=== PATIENT | male | born 1955 | race Asian ===

== ENCOUNTER 2016-11-27 05:11 | Inpatient (IN) | payer MEDICAID ==
[2016-11-27] VITALS (18 sets, daily range): BP systolic 115–157; BP diastolic 52–86
[~2016-11-27] VITALS: Ht 165.1 cm; Wt 70.8 kg
--- NOTE | 2016-11-27 05:14 | Emergency Room Report ---
History of Present Illness General Source: Patient, Medical Record, EMS (AGUSTINA RIVERA M.D.) Present Illness HPI 61YOM BIBEMS from home with 3x syncopal episodes. Fell last night 2x. Fell this morning 4am. First time hit head. 2 hours later, fell to side at dinner. Daughter said he "looked like he was having seizure." Had episodes of vomiting. ?LOC On ASA Also has DM, on metformin Denies chest pain, SOB, palpitations EMS states bradycardic and hypotensive on scene Improved BP after 500cc fluid bolus en route - normotensive in ER. Not bradycardic here. (AGUSTINA RIVERA M.D.) Allergies: Coded Allergies: No Known Allergies (Unverified , 11/27/16) Patient History Limited by: language barrier Past Medical History: none Past Surgical History: none Pertinent Family History: none Social History: Denies: smoking, alcohol use, drug use Immunizations: UTD Reviewed Nursing Documentation: PMH: Agreed, PSxH: Agreed (AGUSTINA RIVERA M.D.) Review of Systems All Other Systems: negative except mentioned in HPI (AGUSTINA RIVERA M.D.) Physical Exam Sp02 EP Interpretation: reviewed, normal General Appearance: normal inspection, well appearing, no apparent distress, alert, GCS 15, non-toxic Head: normocephalic, other - 2cm stellate lac to back of head, very superficial Eyes: bilateral eye PERRL, bilateral eye EOMI ENT: normal ENT inspection, hearing grossly normal, normal voice Neck: normal inspection, full range of motion, supple, no meningismus, no bony tend, other - No midline c-spine ttp Respiratory: normal inspection, lungs clear, normal breath sounds, no rhonchi, no respiratory distress, no retraction, no wheezing, speaking full sentences Cardiovascular #1: regular rate, rhythm, no edema Gastrointestinal: normal inspection, normal bowel sounds, non tender, soft, no guarding, no hernia Genitourinary: no CVA tenderness Musculoskeletal: normal inspection, back normal, normal range of motion, Jose' s Sign negative Neurologic: normal inspection, alert, oriented x3, responsive, coal bagger III-XII nml as tested, motor strength/tone normal, speech normal Psychiatric: normal inspection, judgement/insight normal, mood/affect normal Skin: normal inspection, normal color, no rash (AGUSTINA RIVERA M.D.) Procedures Critical Care Time Critical Care Time CC time 30 minutes Multiple falls in context of likely new onset 2nd degree Mobitz type 2 heart block Time include d/w family Interpretation of labs, images D/w hospitalist Possibly includes transfer for higher level of care and so CC time includes d/w hospitalist/outside specialists CC time also could include dosing of anti-epileptic medication, mannitol, anti- HTN medication, setting pacer capture, dosing atropine for bradycardua Does not include procedure time (AGUSTINA RIVERA M.D.) Medical Decision Making Medicare Attestation I Agustina Rivera MD hereby attest that the medical record entry for date of service, 11/27/16 accurately reflects signatures/notations that I made in my capacity as MD when I treated/diagnosed the above listed Medicare beneficiary. I attest that this information is true, accurate and complete to the best of my knowledge. I understand that any falsification, omission, or concealment of material fact may subject me to administrative, civil, or criminal liability. This patient warrants hospital admission for extreme of age and has a condition that cannot be treated as outpatient. (AGUSTINA RIVERA M.D.) Diagnostic Impression: Primary Impression: Syncopal episodes Qualified Codes: R55 - Syncope and collapse Additional Impressions: Head trauma Qualified Codes: S09.90XA - Unspecified injury of head, initial encounter 2nd degree atrioventricular block Hyperglycemia ER Course Multiple syncopal episodes at home, one with head trauma ?yesterday. Feeling week for months On ASA Minor lac - not requiring suture repair, already >[address]: No acute traumatic ICH Labs: H&H stable. No leuks. K normal. Glucose 359 ECnd degree AV block, RBBB, LAFB Pacer pads placed on patient IVF, insulin given for hyperglycemia Endorsed to Dr Soares at 610am for ICU admission Trop was still pending at this time so that was endorsed to Dr Heard as well as request to consult Dr Arguello from Cardiology (AGUSTINA RIVERA M.D.) ER Course Received signout from 61-year-old male, 3 episodes of syncope, head trauma CT head is negative Patient was hypotensive and bradycardic in the field Second-degree heart block Mobitz type II Currently patient is awake alert, not in acute distress, at bedside is conversing with family members. Heart rate is currently stable ranging from 65- 75. Blood pressure is slightly hypertensive 163/82 Glucose elevated Patient received fluid bolus as well as insulin in the ER Patient was endorsed to Dr. Soares and will be admitted to the ICU Dr. Silver was consulted for cardiology (Yisel Heard M.D.) EKG Diagnostic Results Rate: normal Rhythm: other - 2nd degree AV block ST Segments: no acute changes ASA given to the pt in ED: No (AGUSTINA RIVERA M.D.) Rhythm Strip Diag. Results EP Interpretation: yes Rate: 72 Rhythm: NSR, no PVC's, no ectopy (AGUSTINA RIVERA M.D.) Chest X-Ray Diagnostic Results Chest X-Ray Diagnostic Results : Chest X-Ray Ordered: Yes # of Views/Limited/Complete: 1 View Indication: Other - syncope EP Interpretation: Yes Interpretation: no consolidation, no effusion, no pneumothorax, no acute cardiopulmonary disease Impression: No acute disease Electronically Signed by: Dr Agustina Rivera MD (AGUSTINA RIVERA M.D.) Status: improved (AGUSTINA RIVERA M.D.) Disposition: ADMITTED INPATIENT Condition: Critical AGUSTINA RIVERA M.D. Nov 27, 2016 05:14 Yisel Heard M.D. Nov 27, 2016 06:39
[2016-11-27] MEDS ORDERED: METFORMIN HCL500 M1 ORAL (05:16)
[2016-11-27] MEDS ORDERED: INSULIN (05:16)
[2016-11-27] MEDS ORDERED: ASPIR 8181 MG ORAL (05:16)
[2016-11-27 05:45] LABS: BASOPHILS % (AUTO) 0.7 % (0.0-2.0); EOSINOPHILS % (AUTO) 0.4 % (0.0-3.0); LYMPHOCYTES % (AUTO) 17.8 % (20.0-45.0); MEAN CORPUSCULAR HEMOGLOBIN 31.6 PG (27.0-31.0); MEAN CORPUSCULAR HGB CONC 32.8 G/DL (32.0-36.0); MEAN CORPUSCULAR VOLUME 96 FL (80-99); MEAN PLATELET VOLUME 8.4 FL (6.5-10.1); MONOCYTES % (AUTO) 4.7 % (1.0-10.0); NEUTROPHILS % (AUTO) 76.4 % (45.0-75.0); PLATELET COUNT 166 K/UL (150-450); RED BLOOD COUNT 4.73 M/UL (4.70-6.10); RED CELL DISTRIBUTION WIDTH 12.4 % (11.6-14.8); WHITE BLOOD COUNT 8.3 K/UL (4.8-10.8)
[2016-11-27] MEDS ORDERED: niCARdipine HCl 200 ML IV SCH (05:45)
[2016-11-27] MEDS ORDERED: Tetanus/Diptheria/Pertussis Vaccine 0.5ml Syr IM ONE (05:45)
[2016-11-27 05:58] LABS: ALANINE AMINOTRANSFERASE 94 U/L (3-41); ALBUMIN/GLOBULIN RATIO 1.6 (1.0-2.7); ANION GAP 18 (5-15); ASPARTATE AMINO TRANSFERASE 100 U/L (5-40); CALCIUM 8.8 mg/dL (8.6-10.2); CARBON DIOXIDE 20 mEQ/L (20-30); CHLORIDE 97 mEQ/L (98-107); CREATININE 1.1 mg/dL (0.7-1.2); GLOMERULAR FILTRATION RATE > 60 mL/min (>60); HEMOLYSIS 21; POTASSIUM 4.7 mEQ/L (3.4-4.9); SODIUM 135 mEQ/L (135-145); TOTAL PROTEIN 6.6 g/dL (6.6-8.7)
[2016-11-27 06:33] LABS: TROPONIN I < 0.30 ng/mL (<=0.30)
[2016-11-27 06:43] LABS: CKMB < 1.5 ng/mL (< 6.7)
[2016-11-27 06:53] LABS: BILIRUBIN,DIRECT 0.3 mg/dL (0.1-0.3)
[2016-11-27] MEDS ORDERED: Zolpidem 5mg tab ORAL PRN (08:30)
[2016-11-27] MEDS ORDERED: Milk of Magnesia 30ml Ud ORAL PRN (08:30)
[2016-11-27] MEDS: Aspirin EC 81mg tab ORAL SCH (09:30)
[2016-11-27] MEDS: Heparin 5000 units/ml inj SUBQ SCH ×2 (09:31→20:45)
--- NOTE | 2016-11-27 10:08 | History & Physical ---
History and Physical History & Physicial HP dictated #[id number] LARON STEELE Nov 27, 2016 10:08
[2016-11-27 10:20] LABS: TROPONIN I < 0.30 ng/mL (<=0.30)
--- NOTE | 2016-11-27 10:37 | Diagnostic Imaging Report ---
Indication: Head trauma. Headache. Technique: Contiguous 5 mm thick transaxial imaging of the head obtained in a Siemens Sensation [address] scanner. Soft tissue and bone windows generated. Total Dose length Product (DLP): [address] Dose Index Volume (CTDIvol): 70.38, 0.15 mGy Comparison: none Findings: There is mild prominence of the ventricles, basal cisterns, and cerebral sulci consistent with atrophy. Mild, nonspecific, white matter hypoattenuation is noted throughout the brain consistent with chronic small vessel disease. There is no midline shift, edema, acute hemorrhage, mass effect, or abnormal extra-axial fluid collections. Bones and extra osseous soft tissues are unremarkable. Impression: No acute intracranial bleed, mass effect or edema. Mild atrophy of the brain. Nonspecific white matter hypoattenuation probably due to chronic small vessel disease. The CT scanner at [facility] is accredited by the [employer] and the scans are performed using dose optimization techniques as appropriate to a performed exam including Automatic Exposure control.
[2016-11-27] MEDS: metFORMIN 500mg tab ORAL SCH ×2 (10:47→17:31)
--- NOTE | 2016-11-27 10:54 | Diagnostic Imaging Report ---
Indication: Dyspnea Comparison: None A single view chest radiograph was obtained. Findings: Cardiomediastinal appearance is within normal limits for age. Pulmonary vascularity is appropriate. The diaphragmatic contour is smooth and costophrenic angles are sharp. No pleural effusions are identified. The bones are osteopenic. Impression: No acute findings
[2016-11-27] MEDS: NovoLOG Insulin Flexpen SUBQ SCH ×3 (11:58→20:44)
--- NOTE | 2016-11-27 13:58 | Cardiology Progress Note ---
Assessment/Plan Assessment/Plan high grade avblock syncope dm abn lfts repeat lft coag keep npo need pacemaker message left for ep full not dicated keep in icu trasnsuta pacing icu Objective Last 24 Hour Vital Signs Date Time Temp Pulse Resp B/P (MAP) Pulse Ox O2 Delivery O2 Flow Rate FiO2 11/27/16 13:00 50 17 133/52 99 Nasal Cannula 2.0 11/27/16 12:00 98.2 67 17 139/86 99 Nasal Cannula 2.0 11/27/16 12:00 68 11/27/16 11:00 65 17 127/78 99 Nasal Cannula 2.0 11/27/16 10:00 68 16 133/71 99 Nasal Cannula 2.0 11/27/16 09:00 64 16 132/73 99 Nasal Cannula 2.0 11/27/16 08:06 98 Nasal Cannula 2.0 11/27/16 08:06 Nasal Cannula 2.0 11/27/16 08:00 98.1 63 15 130/67 99 Nasal Cannula 2.0 11/27/16 08:00 62 11/27/16 06:58 97.7 64 15 142/77 99 Room Air 11/27/16 06:49 64 15 142/77 99 Room Air 11/27/16 05:23 73 20 157/79 98 Room Air 11/27/16 05:05 97.7 48 16 157/79 98 Room Air Intake and Output 11/27/16 11/28/16 19:00 07:00 Intake Total 450 ml Output Total 1000 ml Balance -550 ml Intake Oral 450 ml Output Urine Total 1000 ml # Voids 2 Laboratory Tests Test 11/27/16 05:15 11/27/16 09:30 White Blood Count 8.3 K/UL (4.8-10.8) Red Blood Count 4.73 M/UL (4.70-6.10) Hemoglobin 14.9 G/DL (14.2-18.0) Hematocrit 45.4 % (42.0-52.0) Mean Corpuscular Volume 96 FL (80-99) Mean Corpuscular Hemoglobin 31.6 PG (27.0-31.0) H Mean Corpuscular Hemoglobin Concent 32.8 G/DL (32.0-36.0) Red Cell Distribution Width 12.4 % (11.6-14.8) Platelet Count 166 K/UL (150-450) Mean Platelet Volume 8.4 FL (6.5-10.1) Neutrophils (%) (Auto) 76.4 % (45.0-75.0) H Lymphocytes (%) (Auto) 17.8 % (20.0-45.0) L Monocytes (%) (Auto) 4.7 % (1.0-10.0) Eosinophils (%) (Auto) 0.4 % (0.0-3.0) Basophils (%) (Auto) 0.7 % (0.0-2.0) Sodium Level 135 mEQ/L (135-145) Potassium Level 4.7 mEQ/L (3.4-4.9) Chloride Level 97 mEQ/L (98-107) L Carbon Dioxide Level 20 mEQ/L (20-30) Anion Gap 18 (5-15) H Blood Urea Nitrogen 23 mg/dL (7-23) Creatinine 1.1 mg/dL (0.7-1.2) Estimat Glomerular Filtration Rate > 60 mL/min (>60) Glucose Level 359 mg/dL (74-106) H Calcium Level 8.8 mg/dL (8.6-10.2) Total Bilirubin 1.3 mg/dL (0.0-1.2) H Direct Bilirubin 0.3 mg/dL (0.1-0.3) Aspartate Amino Transf (AST/SGOT) 100 U/L (5-40) H Alanine Aminotransferase (ALT/SGPT) 94 U/L (3-41) H Alkaline Phosphatase 64 U/L (40-129) Total Creatine Kinase 66 U/L (38-174) Creatine Kinase MB < 1.5 ng/mL (< 6.7) Creatine Kinase MB Relative Index 2.2 Troponin I < 0.30 ng/mL (<=0.30) < 0.30 ng/mL (<=0.30) Total Protein 6.6 g/dL (6.6-8.7) Albumin 4.1 g/dL (3.5-5.2) Globulin 2.5 g/dL Albumin/Globulin Ratio 1.6 (1.0-2.7) SOBIA BURRELL Nov 27, 2016 13:58
[2016-11-27 15:13] LABS: PROTHROMBIN TIME 10.3 SEC (9.30-11.50)
[2016-11-27 15:22] LABS: TROPONIN I < 0.30 ng/mL (<=0.30)
[2016-11-27 15:29] LABS: CALCIUM 8.8 mg/dL (8.6-10.2); CREATININE 1.3 mg/dL (0.7-1.2); GLOMERULAR FILTRATION RATE 55.8 mL/min (>60); POTASSIUM 4.2 mEQ/L (3.4-4.9); TOTAL PROTEIN 6.4 g/dL (6.6-8.7)
[2016-11-27 16:20] LABS: BILIRUBIN,DIRECT 0.2 mg/dL (0.1-0.3)
--- NOTE | 2016-11-27 17:45 | History and Physical Report ---
DATE OF ADMISSION: 11/27/2016 CHIEF COMPLAINT: Episode of syncope and lightheadedness. History of Present Illness: This is a 61-year-old [place] male, who went outside of his house to see the cutting trees and he felt very lightheaded and he fell. He did not seek medical attention right away, but then later on he had another episode of lightheadedness. Apparently, he went to the [facility], which was closed. He had another episode in early this morning when he passed out and had also vomiting. The patient denies any previous history of heart problems. He was found to be bradycardic and hypotensive on the scene, was giving some IV fluid 500 mL with improvement in his blood pressure. Past Medical History: History of [id number] diabetes mellitus. MEDICATIONS: The patient was taking aspirin and metformin. ALLERGIES: No known drug allergies. Social History: No history of smoking or alcohol abuse. The patient lives with family. REVIEW OF SYSTEMS: As above. PHYSICAL EXAMINATION: GENERAL: The patient is a 61-year-old male, in no acute distress. Vital Signs: Blood pressure is 130/67, pulse 62, temperature 98.1 degrees, and respiratory rate 15. HEENT: [place] conjunctivae. Anicteric sclerae. NECK: Supple. LUNGS: Clear to auscultation. HEART: S1 and S2 without murmurs or rubs. ABDOMEN: Soft and nontender. EXTREMITIES: No cyanosis or edema. Assessment: This is a 61-year-old [place] male, who was admitted with what appears to be symptomatic bradycardia and has sick sinus syndrome. Myocardial infarction needs to be ruled out. His risk factors are diabetes. Plan: The patient will be in the intensive care unit on monitored bed. Cardiology consultation will be obtained. The patient will be ruled out for myocardial infarction by troponins and echocardiogram will be ordered. Ari Soares M.D. DR: ANGIE JOB#: [id number] CC:
[2016-11-28] VITALS (27 sets, daily range): BP systolic 118–147; BP diastolic 65–86
[2016-11-28] MEDS ORDERED: ceFAZolin 2gm/50ml Premix 50 ML IVPB PRN (04:00)
[2016-11-28 05:11] LABS: TROPONIN I < 0.30 ng/mL (<=0.30)
[2016-11-28] MEDS: NovoLOG Insulin Flexpen SUBQ SCH ×4 (05:55→20:52)
[2016-11-28] MEDS ORDERED: Bacitracin 50000 Units Vial ONE (06:44)
[2016-11-28] MEDS ORDERED: Bupivacaine 0.25% Inj 30ml INJ ONE (06:44)
[2016-11-28] MEDS ORDERED: Isovue-M 300 15ml INJ ONE (06:44)
[2016-11-28] MEDS ORDERED: Lidocaine 1% Plain 30 ml INJ ONE (06:44)
[2016-11-28] MEDS ORDERED: Sterile Water Irrig 1000ml IRRIG ONE (07:00)
[2016-11-28] MEDS ORDERED: Propofol 200mg/20ml IV ONE (07:00)
[2016-11-28] MEDS ORDERED: Midazolam 2mg/2ml Inj ONE (07:00)
[2016-11-28] MEDS ORDERED: fentaNYL 100 mcg/2 mL IV ONE (07:00)
[2016-11-28] MEDS ORDERED: NS Irrig 1000ml ONE (07:00)
--- NOTE | 2016-11-28 07:21 | Pre-Procedure Note/Attestation ---
Pre-Procedure Note/Attestation Complete Prior to Procedure Planned Procedure: not applicable Procedure Narrative: permanent pacemaker Indications for Procedure Pre-Operative Diagnosis: intermittent complete AV block Attestation I attest that I discussed the nature of the procedure; its benefits; risks and complications; and alternatives (and the risks and benefits of such alternatives ), prior to the procedure, with the patient (or the patient's legal call center support representative) - d/w pt via farmworker cranberry I attest that, if there was a reasonable possibility of needing a blood transfusion, the patient (or the patient's legal call center support representative) was given the [facility] standardized written summary, pursuant to the [place] Blood Safety Act ([place] Health and Safety Code # 1645, as amended). I attest that I re-evaluated the patient just prior to the surgery and that there has been no change in the patient's H&P, except as documented below: n/a KHADAR LARA Nov 28, 2016 07:21
[2016-11-28] MEDS ORDERED: LR 1000ml 1,000 ML IVLG SCH (07:45)
[2016-11-28] MEDS ORDERED: DiphenhydrAMINE 50mg/ml Inj IVP PRN (07:45)
[2016-11-28] MEDS ORDERED: Ketorolac 30mg Inj IV PRN (07:45)
[2016-11-28] MEDS ORDERED: Hydromorphone 0.5mg/0.5ml inj IVP PRN (07:45)
--- NOTE | 2016-11-28 07:45 | Anethesia Preoperative Eval ---
Anesthesia Pre-op PMH/ROS General Date of Evaluation: Nov 28, 2016 Time of Evaluation: 06:50 Anesthesiologist: Margareth ASA Score: ASA 3 Mallampati Score Class I : Soft palate, uvula, fauces, pillars visible Class II: Soft palate, uvula, fauces visible Class III: Soft palate, base of uvula visible Class IV: Only hard plate visible Mallampati Classification: Class II Surgeon: Bailee Diagnosis: Complete heart block Surgical Procedure: Permanent pacemaker placement Anesthesia History: none Family History: no anesthesia problems Allergies: Coded Allergies: No Known Allergies (Unverified , 11/27/16) Medications: see eMAR Past Medical History Cardiovascular: Reports: HTN, Denies: CAD, FL, valve dz, arrhythmia, other Pulmonary: Denies: asthma, COPD, DANI, other Gastrointestinal/Genitourinary: Reports: GERD, Denies: CRI, ESRD, other Neurologic/Psychiatric: Denies: dementia, CVA, depression/anxiety, TIA, other Endocrine: Reports: DM - poorly controled, Denies: hypothyroidism, steroids, other HEENT: Denies: cataract (L), cataract (R), glaucoma, BISHOP PAIUTE (L), BISHOP PAIUTE (R), other Hematology/Immune: Denies: anemia, DVT, bleeding disorder, other Musculoskeletal/Integumentary: Denies: OA, RA, DJD, DDD, edema, other PMH Narrative: as above admitted for recurrent syncopal episodes PSxH Narrative: none Anesthesia Pre-op Phys. Exam Physician Exam Last Vital Signs Date Time Temp Pulse Resp B/P (MAP) Pulse Ox O2 Delivery O2 Flow Rate FiO2 11/28/16 06:00 69 12 147/86 99 Nasal Cannula 2.0 11/28/16 04:00 98.2 11/27/16 19:30 28 Constitutional: NAD Neurologic: CN 2-12 intact Cardiovascular: RRR, no M/R/G Respiratory: CTA Gastrointestinal: S/NT/ND Airway Exam Mallampati Score: Class II MO: limited Neck: short ROM: limited Dentures: no upper, no lower Anesthesia Pre-op A/P Labs Coagulation Test 11/27/16 14:30 Prothrombin Time 10.3 SEC (9.30-11.50) Prothromb Time International Ratio 1.0 (0.9-1.1) Activated Partial Thromboplast Time 28 SEC (23-33) Chemistry Test 11/27/16 09:30 11/27/16 14:30 11/28/16 04:05 Troponin I < 0.30 ng/mL (<=0.30) < 0.30 ng/mL (<=0.30) < 0.30 ng/mL (<=0.30) Sodium Level 140 mEQ/L (135-145) Potassium Level 4.2 mEQ/L (3.4-4.9) Chloride Level 100 mEQ/L (98-107) Carbon Dioxide Level 24 mEQ/L (20-30) Anion Gap 16 (5-15) H Blood Urea Nitrogen 15 mg/dL (7-23) Creatinine 1.3 mg/dL (0.7-1.2) H Estimat Glomerular Filtration Rate 55.8 mL/min (>60) Glucose Level 245 mg/dL (74-106) #H Calcium Level 8.8 mg/dL (8.6-10.2) Total Bilirubin 1.1 mg/dL (0.0-1.2) Direct Bilirubin 0.2 mg/dL (0.1-0.3) Aspartate Amino Transf (AST/SGOT) 60 U/L (5-40) H Alanine Aminotransferase (ALT/SGPT) 82 U/L (3-41) H Alkaline Phosphatase 65 U/L (40-129) Total Protein 6.4 g/dL (6.6-8.7) L Albumin 4.3 g/dL (3.5-5.2) Globulin 2.1 g/dL Albumin/Globulin Ratio 2.0 (1.0-2.7) Risk Assessment & Plan Assessment: ASA 3 Plan: MAC Status Change Before Surgery: No Pre-Antibiotics Drug: Ancef 1gr Given Within 1 Hr of Incision: Yes Time Given: 07:26 LISSY LINDQUIST M.D. Nov 28, 2016 07:45
--- NOTE | 2016-11-28 08:35 | Operative Note - PDOC ---
Operative Note Operative Note Date of Operation/Procedure: Nov 28, 2016 Pre-op Diagnosis: intermittent complete AV block Post-op Diagnosis: same as pre-op Operative Findings: consistent w/pre-op dx studies Anesthesia: local, MAC, moderate sedation Specimen: none Complications: none Condition: stable Estimated Blood Loss: minimal Drains: none Implant(s) used?: Yes - dual chamber pacemaker Indications for Procedure intermittennt chb Description of Procedure see dictation. Leads placed via L cephalic v approach KHADAR LARA Nov 28, 2016 08:35
[2016-11-28] MEDS ORDERED: Tylenol #3 tab (300mg/30mg) ORAL PRN (08:45)
--- NOTE | 2016-11-28 08:46 | Immediate Post-Op Evaluation ---
Immediate Post-Op Evalulation Immediate Post-Op Evalulation Procedure: Permanent pacemaker placement Date of Evaluation: Nov 28, 2016 Time of Evaluation: 08:45 IV Fluids: 400 Blood Products: none Estimated Blood Loss: 50 Urinary Output: none Blood Pressure Systolic: 136 Blood Pressure Diastolic: 78 Pulse Rate: 62 Respiratory Rate: 20 O2 Sat by Pulse Oximetry: 99 Temperature (Fahrenheit): 97.6 Pain Score (1-10): 2 Nausea: No Vomiting: No Complications none Patient Status: awake, patent, none Hydration Status: adequate LISSY LINDQUIST M.D. Nov 28, 2016 08:46
[2016-11-28] MEDS: Heparin 5000 units/ml inj SUBQ SCH ×2 (09:00→20:52)
--- NOTE | 2016-11-28 09:16 | Consultation ---
DATE OF CONSULTATION: 11/27/2016 CARDIOLOGY CONSULTATION CONSULTING PHYSICIAN: Nelson Silver M.D. REFERRING PHYSICIAN: Ari Soares M.D. REASON FOR REFERRAL: Bradycardia and syncope. History Of Present Illness: This is a middle-aged male, who is apparently not under the care of a physician for a long time, although his daughter apparently gets him some medication for diabetes. Paramedics were summoned because of two episodes of syncope that he had at about 6 and 8 p.m. last night and had laceration on the back of his head on one of them. No other pain. No chest pain. No shortness of breath. Apparently, he was weak and dizzy. The patient was hypotensive and bradycardic on the arrival of paramedics. Blood pressure readings by the paramedics were 91/61 and 133/104. Apparently, no oral trauma. No incontinence. A 250 saline administered. Lung sounds are clear. A 12-lead EKG was apparently done by them, which showed sinus bradycardia and the patient was transferred to the emergency room at [facility]. Electrocardiogram shows several ventricular pauses with evidence of atrial activity on the EKGs approximately. One of the EKG shows what appears to be approximately 7 seconds of no ventricular activity, but atrial ectopy was documented to be adequate suggestive of a high-grade AV block. The patient denies having had any prior episodes of syncope. He does not have any chest pain or pressure at this time. He does have shortness of breath on exertion, especially if he goes uphill. There is no PND or orthopnea. He does have dizziness on standing. Past medical history: Positive for diabetes, apparently no other medical problems noted. The patient has not seen a physician for a long time. ALLERGIES: There is no known drug allergies. Social History: He does not smoke. Does drink alcoholic beverages approximately 10 drinks per month. No drug use. Review Of Systems: Gastrointestinal: He had some nausea and vomiting at the time that was happening apparently. Genitourinary: Negative. Pulmonary: Negative. Constitutional: Negative. Neurologic: Negative. PHYSICAL EXAMINATION: General: Shows to be a middle-aged gentleman, in no apparent respiratory distress. Neck: Supple. No jugular venous distention. No abdominojugular reflux noted. LUNGS: Clear to auscultation and percussion. CARDIAC: S1 is normal. S2 is . Diagnostic Data: EKGs basically show right bundle-branch morphology conduction defect with intermittent episodes of what appears to be Mobitz 1 second-degree AV block. There may be a left anterior fascicular block suggestive of bifascicular block. There are EKGs and copies of paramedics EKG that shows episodes of a higher degree AV block and lack of ventricular activity on one counting of 7 seconds. The patient's telemetry data indicates he has what appears to be 2:1 block at the present time. Laboratory And Diagnostic Data: White count 8.3, hemoglobin 14.9, and platelet count 166. His sodium is 135, potassium 4.7, chloride 97, bicarbonate 20, BUN of 22, creatinine 1.1, and glucose of 359. Total bilirubin of 1.3. AST of 100, ALT of 94, and alkaline phosphate 64. CK of 66. Coags are pending at this time. Imaging: He had a head CT that showed no acute intracranial bleed, mass effect, or edema, mild atrophy of the brain, nonspecific white matter ischemic changes. A chest x-ray shows no acute findings. ASSESSMENT: 1. Bradycardia and atrioventricular block. 2. Syncope. 3. Reported diabetes mellitus with blood sugar of 359. 4. Laceration. 5. Abnormal liver function test. Plan: Dr. Soares, this patient was seen in cardiac consultation. The patient will require permanent pacemaker implantation. We are trying to get a hold of an slusher operator, who would do that for him. Nelson Silver M.D. DR: RADHA JOB#: [id number] CC:
[2016-11-28] MEDS: Aspirin EC 81mg tab ORAL SCH (09:43)
[2016-11-28] MEDS: metFORMIN 500mg tab ORAL SCH ×2 (09:43→17:42)
--- NOTE | 2016-11-28 11:24 | Diagnostic Imaging Report ---
Indication: POST-OP status post pacemaker Technique: One view of the chest Comparison: 11/27/2016 Findings: Is a left chest bifocal pacemaker, lead tips in expected region of the atrium right ventricular apex. No gross pneumothorax. Heart size is normal. Lungs and pleural spaces are clear. Previously demonstrated transcutaneous pacemaker is no longer evident Impression: Status post left chest pacemaker placement. No radiographically evident complication
--- NOTE | 2016-11-28 12:39 | General Progress Note ---
Assessment/Plan Problem List: (1) Syncopal episodes ICD Codes: R55 - Syncope and collapse SNOMED: 193730307 Qualifiers: Qualified Codes: R55 - Syncope and collapse (2) 2nd degree atrioventricular block ICD Codes: I44.1 - Atrioventricular block, second degree SNOMED: 765327372 (3) Hypotension ICD Codes: I95.9 - Hypotension, unspecified SNOMED: 01522300 Qualifiers: Qualified Codes: I95.9 - Hypotension, unspecified Assessment/Plan observe on telemetry Discussed with Dr Silver and RN follow labs Subjective Allergies: Coded Allergies: No Known Allergies (Unverified , 11/27/16) Subjective seen in ICU received pace maker Objective Last 24 Hour Vital Signs Date Time Temp Pulse Resp B/P (MAP) Pulse Ox O2 Delivery O2 Flow Rate FiO2 11/28/16 11:00 60 13 131/76 99 Nasal Cannula 2.0 11/28/16 10:00 98.4 60 16 136/76 99 Nasal Cannula 2.0 11/28/16 10:00 60 11/28/16 09:25 98.2 60 17 137/80 99 Nasal Cannula 2.0 11/28/16 09:10 60 15 129/83 100 Nasal Cannula 2.0 11/28/16 09:00 60 16 128/77 100 Nasal Cannula 2.0 11/28/16 08:48 60 14 132/81 100 Nasal Cannula 2.0 11/28/16 08:46 62 20 99 11/28/16 08:43 60 12 134/79 100 Nasal Cannula 2.0 11/28/16 08:38 60 14 140/82 100 Nasal Cannula 2.0 11/28/16 07:55 Nasal Cannula 2.0 28 11/28/16 07:55 98 Nasal Cannula 2.0 28 11/28/16 06:00 69 12 147/86 99 Nasal Cannula 2.0 11/28/16 05:00 60 12 140/78 99 Nasal Cannula 2.0 11/28/16 04:00 98.2 55 14 118/75 99 Nasal Cannula 2.0 11/28/16 04:00 55 11/28/16 03:00 55 13 121/70 99 Nasal Cannula 2.0 11/28/16 02:00 56 13 137/76 99 Nasal Cannula 2.0 11/28/16 01:00 68 16 138/75 100 Nasal Cannula 2.0 11/28/16 00:00 67 11/28/16 00:00 97.9 77 17 141/79 99 Nasal Cannula 2.0 11/27/16 23:00 62 14 120/71 99 Nasal Cannula 2.0 11/27/16 22:00 59 18 115/70 99 Nasal Cannula 2.0 11/27/16 21:00 65 18 127/77 96 Nasal Cannula 2.0 11/27/16 20:00 97.8 76 16 137/67 96 Nasal Cannula 2.0 11/27/16 20:00 82 11/27/16 19:30 98 Nasal Cannula 2.0 28 11/27/16 19:30 Nasal Cannula 2.0 28 11/27/16 19:00 73 17 136/68 100 Nasal Cannula 2.0 11/27/16 18:00 46 17 125/68 100 Nasal Cannula 2.0 11/27/16 17:00 61 16 127/65 99 Nasal Cannula 2.0 11/27/16 16:00 68 11/27/16 16:00 98.3 71 17 128/71 99 Nasal Cannula 2.0 11/27/16 15:00 64 16 119/60 98 Nasal Cannula 2.0 11/27/16 14:00 76 17 142/61 99 Nasal Cannula 2.0 11/27/16 13:00 50 17 133/52 99 Nasal Cannula 2.0 Intake and Output 11/28/16 11/29/16 19:00 07:00 Intake Total 460 ml Output Total 50 ml Balance 410 ml Intake Oral 0 ml IV Total 400 ml Other 60 ml Estimated Blood Loss 50 ml Laboratory Tests 11/27/16 14:30: Prothrombin Time 10.3, Prothromb Time International Ratio 1.0, Activated Partial Thromboplast Time 28, Sodium Level 140, Potassium Level 4.2, Chloride Level 100, Carbon Dioxide Level 24, Anion Gap 16H, Blood Urea Nitrogen 15, Creatinine 1.3H, Estimat Glomerular Filtration Rate 55.8, Glucose Level 245#H, Calcium Level 8.8, Total Bilirubin 1.1, Direct Bilirubin 0.2, Aspartate Amino Transf (AST/SGOT) 60H, Alanine Aminotransferase (ALT/SGPT) 82H, Alkaline Phosphatase 65, Troponin I < 0.30, Total Protein 6.4L, Albumin 4.3, Globulin 2.1 , Albumin/Globulin Ratio 2.0 11/28/16 04:05: Troponin I < 0.30 Height (Feet): 5 Height (Inches): 5.00 Weight (Pounds): 156 Cardiovascular: normal rate Respiratory/Chest: lungs clear Edema: no edema noted LARON Cormier Nov 28, 2016 12:39
[2016-11-28] MEDS: ceFAZolin sod 1 GM in D5W 55 ML IVPB SCH ×2 (15:30→22:21)
--- NOTE | 2016-11-28 18:38 | Cardiology Report ---
APPROVED REPORT EXAM: Two-dimensional and M-mode echocardiogram with Doppler and color Doppler. INDICATION Syncope M-Mode DIMENSIONS IVSd0.9 (0.7-1.1cm)Left Atrium (MM)3.2 (1.6-4.0cm) LVDd4.7 (3.5-5.6cm)Aortic Root3.1 (2.0-3.7cm) PWd1.3 (0.7-1.1cm)Aortic Cusp Exc.1.9 (1.5-2.0cm) LVDs4.0 (2.5-4.0cm) PWs1.2 cm Normal left ventricular chamber size, systolic function and wall motion. Left ventricular ejection fraction estimated to be 60-65%. No evidence of left ventricular hypertrophy. No evidence of pericardial effusion. Right cardiac chamber sizes are within normal limits. Mild left atrial enlargement by 2D. Focal aortic valve sclerosis with adequate cusp excursion. Thickened mitral valve leaflets with normal excursion. Mild mitral annulus and aortic root calcification. Pulmonic valve not well visualized. Normal tricuspid valve structure. IVC is normal in size and collapsible with respiration. A color flow and spectral Doppler study was performed and revealed: No mitral regurgitation. Mitral inflow indicate normal left ventricular diastolic function. No tricuspid regurgitation. Pulmonic regurgitation present.
--- NOTE | 2016-11-28 19:05 | Cardiology Report ---
APPROVED REPORT EKG Measurement Heart [id number] Sinus rhythm with 2nd degree AV block (Mobitz II) Right bundle branch block Left anterior fascicular block Bifascicular block Abnormal ECG
--- NOTE | 2016-11-28 20:26 | Cardiology Progress Note ---
Assessment/Plan Assessment/Plan high grade avblock syncope dm abn lfts s/p ppi doien well trasfer to tel home in am repeat lfts Subjective Cardiovascular: Denies: chest pain, lightheadedness Respiratory: Denies: shortness of breath Gastrointestinal/Abdominal: Denies: abdominal pain Genitourinary: Denies: burning Objective Last 24 Hour Vital Signs Date Time Temp Pulse Resp B/P (MAP) Pulse Ox O2 Delivery O2 Flow Rate FiO2 11/28/16 20:00 98.2 63 17 141/73 99 Nasal Cannula 2.0 11/28/16 19:00 60 13 124/68 99 Nasal Cannula 2.0 11/28/16 18:00 62 15 126/69 99 Nasal Cannula 2.0 11/28/16 17:08 97.8 11/28/16 17:00 50 13 124/72 99 Nasal Cannula 2.0 11/28/16 16:00 66 11/28/16 16:00 97.8 68 16 131/71 99 Nasal Cannula 2.0 11/28/16 15:00 62 14 121/68 99 Nasal Cannula 2.0 11/28/16 14:00 60 13 127/71 99 Nasal Cannula 2.0 11/28/16 13:00 61 15 134/78 97 Nasal Cannula 2.0 11/28/16 12:00 97.4 63 15 135/80 99 Nasal Cannula 2.0 11/28/16 12:00 63 11/28/16 11:00 60 13 131/76 99 Nasal Cannula 2.0 11/28/16 10:00 98.4 60 16 136/76 99 Nasal Cannula 2.0 11/28/16 10:00 60 11/28/16 09:25 98.2 60 17 137/80 99 Nasal Cannula 2.0 11/28/16 09:10 60 15 129/83 100 Nasal Cannula 2.0 11/28/16 09:00 60 16 128/77 100 Nasal Cannula 2.0 11/28/16 08:48 60 14 132/81 100 Nasal Cannula 2.0 11/28/16 08:46 62 20 99 11/28/16 08:43 60 12 134/79 100 Nasal Cannula 2.0 11/28/16 08:38 60 14 140/82 100 Nasal Cannula 2.0 11/28/16 07:55 Nasal Cannula 2.0 28 11/28/16 07:55 98 Nasal Cannula 2.0 28 11/28/16 06:00 69 12 147/86 99 Nasal Cannula 2.0 11/28/16 05:00 60 12 140/78 99 Nasal Cannula 2.0 11/28/16 04:00 98.2 55 14 118/75 99 Nasal Cannula 2.0 11/28/16 04:00 55 11/28/16 03:00 55 13 121/70 99 Nasal Cannula 2.0 11/28/16 02:00 56 13 137/76 99 Nasal Cannula 2.0 11/28/16 01:00 68 16 138/75 100 Nasal Cannula 2.0 11/28/16 00:00 67 11/28/16 00:00 97.9 77 17 141/79 99 Nasal Cannula 2.0 11/27/16 23:00 62 14 120/71 99 Nasal Cannula 2.0 11/27/16 22:00 59 18 115/70 99 Nasal Cannula 2.0 11/27/16 21:00 65 18 127/77 96 Nasal Cannula 2.0 General Appearance: alert Neck: supple Cardiovascular: normal rate, regular rhythm Respiratory/Chest: lungs clear, normal breath sounds Abdomen: normal bowel sounds, non tender, soft Extremities: no swelling Intake and Output 11/28/16 11/29/16 19:00 07:00 Intake Total 1475 ml 0 ml Output Total 650 ml Balance 825 ml 0 ml Intake Oral 960 ml 0 ml IV Total 455 ml Other 60 ml Output Urine Total 600 ml Estimated Blood Loss 50 ml Laboratory Tests Test 11/28/16 04:05 Troponin I < 0.30 ng/mL (<=0.30) SOBIA BURRELL Nov 28, 2016 20:26
--- NOTE | 2016-11-28 21:45 | Operative Note - Dictated ---
SURGEON: Radha Morocho M.D. ANESTHESIOLOGIST: Cecilio Zuluaga M.D. Procedure Performed: Implantation of a permanent dual-chamber pacemaker. INDICATION: Intermittent complete heart block. Clinical History: The patient is a 61-year-old man with history of recent dizziness and syncope, found to have high-grade AV block with over 7-second asystole. No reversible cause was found. The implanted pacemaker is a [employer] MRI 09506, #[id number]. The implanted leads in the atrium is a [employer] 2088TC, serial number [id number], and the ventricle is a [employer] 2088TC, serial number [id number]. Pacing and sensing in the atrium, sensing is 2.6 millivolts and in the ventricle 7.4 millivolts. Pacing threshold 1.25 volts at 0.4 milliseconds in the atrium and 0.5 volts at 0.4 milliseconds in the ventricle. Lead impedances are 480 ohms in the atrium and 710 ohms in the ventricle. ANESTHESIA: Local and intravenous sedation. Description Of Procedure: The patient was brought to the operating room, received sedation as per the anesthesiologist, Dr. Zuluaga. The left chest was sterilely prepped and draped in the usual manner. The skin and underlying soft tissues over the left deltopectoral groove were infiltrated with 1% Xylocaine local anesthetic. An incision was made. This was carried down to the prepectoral fascia using blunt and Bovie dissection. The left cephalic vein was isolated. A proximal loop and distal tie of silk suture were placed. The vein was then incised and two guidewires advanced under fluoroscopy into the lower right atrium. The ventricular lead was passed directly through the vein and positioned in the right ventricular apex under fluoroscopy. The screw was advanced under fluoroscopy. The above pacing and sensing thresholds were obtained. There was no diaphragmatic stimulation with pacing at 10 volts. The lead was secured with two nonabsorbable sutures via the suture sleeve. Next, the atrial lead was passed through a 6-Faroese safe sheath, which was advanced over one of the guidewires. The guidewire and dilator were removed. The atrial lead was positioned in the right atrial appendage under fluoroscopy. The screw was advanced under fluoroscopy. The above pacing and sensing thresholds were obtained. There was no diaphragmatic stimulation with pacing at 10 volts. The lead was secured with two nonabsorbable sutures via the suture sleeve after the introducer had been peeled away. The ventricular lead was similarly secured with two nonabsorbable sutures via the suture sleeve. Subcutaneous pocket was created using blunt and Bovie dissection. The pocket was flushed with an antibiotic solution. The pacemaker generator was brought to the field, atrial and ventricular leads were attached. The setscrews were tightened and checked. The leads in general were placed into the subcutaneous pocket with the excess lead coiled beneath the generator. The incision was then closed with 2-0 and 4-0 Monocryl absorbable suture and a sterile dressing was applied. The patient tolerated the procedure well and there were no intraprocedural complications. Radha Morocho M.D. DR: SHWETA JOB#: [id number] CC: Nelson Silver M.D.; Fax#: [phone] Rahban, M.D. ; Fax#: [phone]
[2016-11-29] VITALS: BP 113/69
[2016-11-29 01:16] VITALS: BP 127/84
[2016-11-29] MEDS ORDERED: Tylenol #3 tab (300mg/30mg) ORAL PRN (02:45)
[2016-11-29 04:11] VITALS: BP 132/76
[2016-11-29] MEDS: ceFAZolin sod 1 GM in D5W 55 ML IVPB SCH ×2 (06:00→13:51)
[2016-11-29] MEDS ORDERED: sitaGLIPtin 50mg tab ORAL SCH ×2 (06:30)
[2016-11-29] MEDS: NovoLOG Insulin Flexpen SUBQ SCH ×3 (06:40→16:34)
[2016-11-29 07:15] LABS: BASOPHILS % (AUTO) 0.8 % (0.0-2.0); EOSINOPHILS % (AUTO) 3.2 % (0.0-3.0); MEAN CORPUSCULAR HEMOGLOBIN 32.1 PG (27.0-31.0); MEAN CORPUSCULAR HGB CONC 33.2 G/DL (32.0-36.0); MEAN CORPUSCULAR VOLUME 97 FL (80-99); MEAN PLATELET VOLUME 9.1 FL (6.5-10.1); MONOCYTES % (AUTO) 8.4 % (1.0-10.0); NEUTROPHILS % (AUTO) 61.7 % (45.0-75.0); PLATELET COUNT 178 K/UL (150-450); RED BLOOD COUNT 4.71 M/UL (4.70-6.10); RED CELL DISTRIBUTION WIDTH 12.7 % (11.6-14.8); WHITE BLOOD COUNT 7.9 K/UL (4.8-10.8)
[2016-11-29 07:33] LABS: ALANINE AMINOTRANSFERASE 47 U/L (3-41); ALBUMIN/GLOBULIN RATIO 2.3 (1.0-2.7); ANION GAP 15 (5-15); ASPARTATE AMINO TRANSFERASE 22 U/L (5-40); CALCIUM 8.6 mg/dL (8.6-10.2); CARBON DIOXIDE 26 mEQ/L (20-30); CHLORIDE 100 mEQ/L (98-107); CREATININE 0.7 mg/dL (0.7-1.2); GLOMERULAR FILTRATION RATE > 60 mL/min (>60); HEMOLYSIS 3; POTASSIUM 4.3 mEQ/L (3.4-4.9); SODIUM 141 mEQ/L (135-145)
[2016-11-29 07:34] LABS: TROPONIN I < 0.30 ng/mL (<=0.30)
[2016-11-29 07:52] LABS: BILIRUBIN,DIRECT 0.2 mg/dL (0.1-0.3)
[2016-11-29 07:56] LABS: HEMOGLOBIN A1C 8.2 % (< 6.0)
[2016-11-29 08:00] VITALS: BP 127/74
[2016-11-29] MEDS ORDERED: Milk of Magnesia 30ml Ud ORAL PRN (08:30)
[2016-11-29] MEDS ORDERED: Zolpidem 5mg tab ORAL PRN (08:30)
[2016-11-29] MEDS ORDERED: Aspirin EC 81mg tab ORAL SCH (09:00)
[2016-11-29] MEDS ORDERED: metFORMIN 500mg tab ORAL SCH (09:00)
[2016-11-29] MEDS ORDERED: Heparin 5000 units/ml inj SUBQ SCH (09:00)
--- NOTE | 2016-11-29 11:05 | 48 Hour Post Anesthesia Eval ---
Post Anesthesia Evaluation Procedure: Permanent pacemaker placement Date of Evaluation: Nov 29, 2016 Time of Evaluation: 13:05 Blood Pressure Systolic: 127 0: 74 Pulse Rate: 65 Respiratory Rate: 21 Temperature (Fahrenheit): 97.6 O2 Sat by Pulse Oximetry: 94 Airway: patent Nausea: No Vomiting: No Pain Intensity: 0 Hydration Status: adequate Cardiopulmonary Status: Stable Mental Status/LOC: patient returned to baseline Follow-up Care/Observations: As per surgery Post-Anesthesia Complications: No anesthetic complication Follow-up care needed: N/A PARVIN OLIVARES M.D. Nov 29, 2016 11:05
--- NOTE | 2016-11-29 11:16 | Wound Care Consultation ---
Wound Assessment Wound Assessment : Wound Number: 1 Wound Present on Admission: Yes New Wound: No Status Change of Wound: No Wound Location Body Site Modif: mid Wound Location Body Site: parietal region Wound Type: traumatic injury Krissy Test: Does not Krissy Wound Thickness: Full Thickness Wound Length: 4.0 Wound Width: 4.0 Wound Depth: 0.2 Percent of Wound [place]/Red: 100 Wound Drainage Description: Serosanguineous Wound Drainage Amount: Scant Wound Drainage Odor: None/Absent Tissue Surrounding Wound: Erythemic Wound General Appearance: Reddened, Draining Wound Comment #1 Parietal bone area traumatic injury due to s/p fall incident Recommendation -Cleanse with saline, pat dry, apply Xeroform drg, cover with 4x4, secure with paper tape daily and PRN soiled/dislodged. -Keep clean and dry -Assess for infection and f/u with MARCIA NOVOA RN Nov 29, 2016 11:16
[2016-11-29 12:00] VITALS: BP 132/79
--- NOTE | 2016-11-29 14:40 | Consultation ---
Consult Note Assessment/Plan Dc dictated # [id number] LARON STEELE Nov 29, 2016 14:40
[2016-11-29] MEDS ORDERED: Tubing IV Secondary IV ONE (15:29)
[2016-11-29] MEDS ORDERED: NS 275ml ONE (15:29)
[2016-11-29 16:00] VITALS: BP 129/72
--- NOTE | 2016-11-30 18:17 | Discharge Summary ---
DATE OF ADMISSION: 11/27/2016 DATE OF DISCHARGE: 11/29/2016 CHIEF COMPLAINT: Syncope and lightheadedness. History Of Present Illness: This is a 61-year-old [place] male who was admitted with a couple of episodes of syncope, details are in the History and Physical. The patient was found to have symptomatic bradycardia with significant AV block and also pause. Hospital Course: The patient was in the intensive care unit and was seen by Dr. Nelson Silver in Cardiology consultation who recommended the pacemaker. The pacemaker was inserted by Dr. Radha Morocho and he remained stable. Eventually, he was sent out of the intensive care unit and finally discharged home. DISCHARGE DIAGNOSES: 1. Symptomatic bradycardia with syncope as a result of atrioventricular block. 2. History of diabetes. DISCHARGE MEDICATIONS: Please refer to discharge medication list. DIET: Diabetic diet. Followup: The patient was asked to go to Dr. Morocho for checkup on the pacemaker. Ari Soares M.D. DR: LATESHA JOB#: [id number] CC:
== END 2016-11-29 16:50 | disposition home or self-care (01) | DRG 171 ==
LOC: EDBD 05:11 → EMR 05:29 → EDBEDREQSVC 05:44 → EDBEDREQ 05:44 → EDBEDREQTM 05:45 → ICU 06:04 → EDBEDREQ 06:21 → 2E 11-29 00:38
PROC: 02HK3JZ Insertion of Pacemaker Lead into Right Ventricle, Percutaneous Approach (ICD-10-PCS; 2016-11-28)
PROC: 02H63JZ Insertion of Pacemaker Lead into Right Atrium, Percutaneous Approach (ICD-10-PCS; 2016-11-28)
PROC: 0JH606Z Insertion of Pacemaker, Dual Chamber into Chest Subcutaneous Tissue and Fascia, Open Approach (ICD-10-PCS; principal; 2016-11-28 07:00)
DX: I44.2 Atrioventricular block, complete (principal); I95.9 Hypotension, unspecified; R55 Syncope and collapse; R00.1 Bradycardia, unspecified; E11.9 Type 2 diabetes mellitus without complications; S01.01XA Laceration without foreign body of scalp, initial encounter; W19.XXXA Unspecified fall, initial encounter; Y92.007 Garden or yard of unspecified non-institutional (private) residence as the place of occurrence of the external cause
CPT/HCPCS: 36415; 70450; 71010; 76001; 80053; 82248; 82550; 82553; 82962; 83036; 84484; 85025; 85610; 85730; 87081; 90471; 90715; 93005; 93306; 94003; 94150; 94760; J1815; J2250; J2405